=== PATIENT | female | born 1985 | race Caucasian/White ===

== ENCOUNTER → 2016-05-08 | Outpatient (CLI) | payer OTHER ==
--- NOTE | 2016-05-08 08:26 | DIAGNOSTIC IMAGING REPORT ---
(BARIUM SWALLOW) ESOPHAGUS CLINICAL HISTORY: DYSPHAGIAdysphagia COMPARISON STUDY: None FLUOROSCOPY TIME: 0.2 minutes. FINDINGS: Despite several attempts, the patient was unable to tolerate the barium mixture. Study is incomplete as the patient could not tolerate the exam. IMPRESSION: Nondiagnostic study as the patient could not tolerate the examination Electronically signed by: Ramesh Peres M.D. 05/08/2016 8:25 AM Dictated Date/Time: 05/08/2016 8:24 AM
== END | disposition home or self-care (01) ==
LOC: C.RAD 07:40
PROVIDERS: ATTEND Obstetrics & Gynecology
DX: R13.10 Dysphagia, unspecified (principal)